=== PATIENT | female | born 1950 | race Caucasian/White ===

== ENCOUNTER → 2022-06-02 | Outpatient (CLI) | payer MEDICARE, OTHER | END | disposition home or self-care (01) | LOC: RESCLI 09:49 | PROVIDERS: ATTEND Family Medicine | DX: K11.7 Disturbances of salivary secretion (principal); I10 Essential (primary) hypertension; G47.00 Insomnia, unspecified; J30.2 Other seasonal allergic rhinitis; M13.0 Polyarthritis, unspecified; Z88.5 Allergy status to narcotic agent; Z82.49 Family history of ischemic heart disease and other diseases of the circulatory system; Z98.890 Other specified postprocedural states; Z79.899 Other long term (current) drug therapy ==